=== PATIENT | female | born 1960 | race Caucasian/White ===

== ENCOUNTER 2024-08-16 15:39 | Inpatient (IN) | payer MEDICARE, MEDICAID ==
[~2024-08-16] VITALS: Ht 165.1 cm; Wt 59.1 kg
[2024-08-16] VITALS (9 sets, daily range): BP systolic 117–146; BP diastolic 66–82; PULSE 83–90; RESP 13–21; TEMP 96.7; O2SAT 96–100
[2024-08-16 16:26] LABS: BASOPHILS % (AUTO) 0.2 % (0-1); EOSINOPHILS % (AUTO) 0.2 % (0-6); MEAN PLATELET VOLUME 6.6 FL (7.4-10.4)
[2024-08-16 16:27] LABS: HEMATOCRIT 32.5 % (35.0-45.0); HEMOGLOBIN 9.5 g/dl (12.0-16.0); LYMPHOCYTES # (AUTO) 1.3 X10'3 (1.1-4.8); LYMPHOCYTES % (AUTO) 12.3 % (21-51); MEAN CORPUSCULAR HEMOGLOBIN 18.8 PG (27.0-31.0); MEAN CORPUSCULAR HGB CONC 29.1 g/dL (33.0-36.5); MEAN CORPUSCULAR VOLUME 64.3 FL (78-98); MONOCYTES # (AUTO) 0.8 X10'3 (0-0.9); MONOCYTES % (AUTO) 7.4 % (2-12); NEUTROPHILS # (AUTO) 8.4 X10'3 (1.8-7.7); NEUTROPHILS % (AUTO) 79.9 % (42-75); PLATELET COUNT 765 X10'3 (140-440); RED BLOOD COUNT 5.05 X10'6 (4.20-5.60); RED CELL DISTRIBUTION WIDTH 20.1 % (11.5-14.5); WHITE BLOOD COUNT 10.6 X10'3 (4.5-11.0)
[2024-08-16 16:40] LABS: ALANINE AMINOTRANSFERASE 17 U/L (12-78); ALBUMIN 2.5 G/DL (3.4-5.0); ALBUMIN/GLOBULIN RATIO 0.5 (1.1-1.5); ALKALINE PHOSPHATASE 80 IU/L (46-116); ANION GAP 9 (8-16); ASPARTATE AMINO TRANSFERASE 16 U/L (10-37); BILIRUBIN,TOTAL 0.9 MG/DL (0.1-1.0); BLOOD UREA NITROGEN 36 MG/DL (7-18); BUN/CREATININE RATIO 21.4 (10.0-20.0); CALCIUM 9.1 MG/DL (8.5-10.1); CHLORIDE 102 MMOL/L (99-107); CREATININE 1.68 MG/DL (0.40-0.90); GLUCOSE 105 MG/DL (70-104); POTASSIUM 3.5 MMOL/L (3.5-5.1); SODIUM 139 MMOL/L (135-145); TOTAL CARBON DIOXIDE 28.2 MMOL/L (24-32); TOTAL PROTEIN 7.1 G/DL (6.4-8.2); eGFR 31 ML/MIN
[2024-08-16 16:47] LABS: PRO BRAIN NATRIURETIC PEPTIDE 468 PG/ML (0-125)
[2024-08-16] MEDS: fentaNYL/PF 50MCG/1 ML 2ML syringe IV ONE ×2 (16:53→18:30)
[2024-08-16] MEDS: normal saline 1000ML IV soln IVB ONE (16:54)
[2024-08-16 17:07] LABS: ANISOCYTOSIS 3+; HYPOCHROMASIA 2+; MICROCYTOSIS 2+; PLATELET ESTIMATE INCREASED; ROULEAUX 1+; TOTAL CELLS COUNTED 100
[2024-08-16 17:08] LABS: POLYCHROMASIA 1+
[2024-08-16 17:10] LABS: ELLIPTOCYTES FEW; TOXIC VACUOLATION FEW
[2024-08-16] MEDS ORDERED: potassium Cl 40MEQ/1/2NS 520ml 520 ML IV PRN (17:30)
[2024-08-16] MEDS ORDERED: magnesium Cl slow-release 64mg tablet PO PRN (17:30)
[2024-08-16] MEDS ORDERED: acetaminophen 325mg tablet PO PRN ×2 (17:30)
[2024-08-16] MEDS ORDERED: magnesium sulf-water 2g/50mL 50 ML IV PRN (17:30)
[2024-08-16] MEDS ORDERED: potassium Cl 20 mEq SR tablet PO PRN ×2 (17:30)
[2024-08-16] MEDS ORDERED: ondansetron/PF 4mg/2ml inj IV PRN ×2 (17:30→21:00)
[2024-08-16] MEDS ORDERED: morphine 2 MG/ML inj. syringe IV PRN ×3 (17:30→23:10)
[2024-08-16] MEDS ORDERED: magnesium sulf-water 4G/100mL 100 ML IV PRN (17:30)
[2024-08-16 17:41] LABS: BILIRUBIN,URINE SMALL (Neg); CLARITY,URINE TURBID (Clear); COLOR,URINE YELLOW (Yellow); GLUCOSE, URINE NEGATIVE (Neg); KETONES,URINE TRACE mg/dl (Neg); LEUKOCYTE ESTERASE ,URINE MODERATE (Neg); NITRITES, URINE NEGATIVE (Neg); OCCULT BLOOD,URINE SMALL (Neg); PROTEIN,URINE 100 mg/dl (Neg); UROBILINOGEN,URINE 0.2 E.U/dL (0.2-1.0)
[2024-08-16] MEDS: piperacillin/tazo 3.375gm/50ml 50 ML IV ONE (17:42)
[2024-08-16] MEDS: normal saline 1000ml 1,000 ML IV SCH (17:42)
[2024-08-16] MEDS: morphine 2 MG/ML inj. syringe IV PRN (17:45)
[2024-08-16 17:47] LABS: UA COLLECTION TYPE STRAIGHT CATH
[2024-08-16 17:48] LABS: BACTERIA,URINE 4+ /HPF (Neg); MUCUS STRANDS FEW /LPF (Neg); SQUAMOUS EPITHELIAL CELL,UR MODERATE /LPF (FEW); WBC,URINE TNTC /HPF (0-4)
[2024-08-16 17:49] LABS: WBC CLUMPS,URINE MANY /HPF (NEGATIVE)
[2024-08-16 18:53] LABS: URINE AMPHETAMINE SCREEN POSITIVE (Neg); URINE BARBITUATE SCREEN NEGATIVE (Neg); URINE BENZODIAZEPINES SCREEN NEGATIVE (Neg); URINE CANNABINOID SCREEN NEGATIVE (Neg); URINE COCAINE SCREEN NEGATIVE (Neg); URINE METHADONE SCREEN NEGATIVE (Neg); URINE OPIATE SCREEN NEGATIVE (Neg); URINE PHENCYCLIDINE SCREEN NEGATIVE (Neg)
[2024-08-16] MEDS: normal saline 1000ml 1,000 ML IV ONE (19:10)
[2024-08-16] MEDS ORDERED: midazolam 1 mg/ML 2ml injection ONE (19:38)
[2024-08-16] MEDS ORDERED: fentaNYL /PF 50mcg/ml 5ml ampule ONE (19:39)
[2024-08-16] MEDS ORDERED: rocuronium 10mg/ml inj IV ONE (19:39)
[2024-08-16] MEDS ORDERED: propofol inj 20 ML IV ONE (19:39)
[2024-08-16] MEDS: BUPIVACAINE liposomal/PF 13.3 MG/ML vial IM ONE (19:46)
[2024-08-16] MEDS: BUPIVAcaine/PF 2.5mg/ml (0.25%) 10ml vial ONE (19:46)
[2024-08-16] MEDS: ciprofloxacin lact 400MG/200ML 200 ML IV SCH (19:48)
[2024-08-16] MEDS ORDERED: sevoflurane 250ml liquid IH ONE (20:07)
[2024-08-16] MEDS ORDERED: ceFOXitin 1000 MG inj ONE (20:08)
[2024-08-16] MEDS ORDERED: albumin (Human) 5% 250ml 250 ML IV ONE (20:52)
[2024-08-16] MEDS: ringers solution, lacted 1,000 ML IV SCH (21:00)
[2024-08-16] MEDS ORDERED: morphine 4 MG/ML inj SYRINge IV PRN (21:00)
[2024-08-16] MEDS ORDERED: meperidine/PF 25mg/ml syringe IV PRN ×3 (21:00)
[2024-08-16] MEDS ORDERED: proCHLORperazine 10 MG/2 ml inj IV PRN (21:00)
[2024-08-16] MEDS ORDERED: sugammadex 200mg/2ml injection IV ONE (21:24)
[2024-08-16] MEDS: pantoprazole 40MG/NS 100ML BAG 100 ML IV SCH (21:59)
[2024-08-16] MEDS: metroNIDAZOLE-Flagyl 500mg/NS 100 ML IV SCH (23:39)
[2024-08-16] MEDS: heparin, porcine 5000 units/ml vial SQ SCH (23:40)
[2024-08-17] VITALS (14 sets, daily range): BP systolic 98–121; BP diastolic 57–75; PULSE 71–103; RESP 13–19; TEMP 96.6–99.3; O2SAT 91–99
[2024-08-17] MEDS: pantoprazole 40MG/NS 100ML BAG 100 ML IV SCH (03:02)
[2024-08-17 07:14] LABS: BASOPHILS % (AUTO) 0.1 % (0-1); EOSINOPHILS % (AUTO) 0 % (0-6); HEMATOCRIT 23.5 % (35.0-45.0); LYMPHOCYTES # (AUTO) 0.7 X10'3 (1.1-4.8); LYMPHOCYTES % (AUTO) 5.9 % (21-51); MEAN CORPUSCULAR HEMOGLOBIN 18.4 PG (27.0-31.0); MEAN CORPUSCULAR HGB CONC 27.8 g/dL (33.0-36.5); MEAN CORPUSCULAR VOLUME 66.1 FL (78-98); MEAN PLATELET VOLUME 6.7 FL (7.4-10.4); MONOCYTES # (AUTO) 0.3 X10'3 (0-0.9); MONOCYTES % (AUTO) 3.1 % (2-12); NEUTROPHILS # (AUTO) 10.2 X10'3 (1.8-7.7); NEUTROPHILS % (AUTO) 90.9 % (42-75); PLATELET COUNT 436 X10'3 (140-440); RED BLOOD COUNT 3.56 X10'6 (4.20-5.60); RED CELL DISTRIBUTION WIDTH 20.4 % (11.5-14.5); WHITE BLOOD COUNT 11.2 X10'3 (4.5-11.0)
[2024-08-17 07:52] LABS: HEMOGLOBIN 6.5 g/dl (12.0-16.0)
[2024-08-17 07:57] LABS: % IRON SATURATION 2 % (11-46); IRON 5 UG/DL (49-151); TOTAL IRON BINDING CAPACITY 213 UG/DL (259-388)
[2024-08-17] MEDS ORDERED: pantoprazole 40mg Tablet.DR PO SCH (08:00)
[2024-08-17 08:12] LABS: ALANINE AMINOTRANSFERASE 9 U/L (12-78); ALBUMIN 1.8 G/DL (3.4-5.0); ALBUMIN/GLOBULIN RATIO 0.5 (1.1-1.5); ALKALINE PHOSPHATASE 43 IU/L (46-116); ANION GAP 10 (8-16); ASPARTATE AMINO TRANSFERASE 17 U/L (10-37); BILIRUBIN,TOTAL 0.5 MG/DL (0.1-1.0); BLOOD UREA NITROGEN 31 MG/DL (7-18); BUN/CREATININE RATIO 20.9 (10.0-20.0); CHLORIDE 114 MMOL/L (99-107); CREATININE 1.48 MG/DL (0.40-0.90); FERRITIN 29 NG/ML (8-252); FREE T4 (FREE THYROXINE) 1.39 NG/DL (0.73-1.40); GLUCOSE 114 MG/DL (70-104); POTASSIUM 4.1 MMOL/L (3.5-5.1); SODIUM 143 MMOL/L (135-145); THYROID STIMULATING HORMONE 4.25 ulU/ml (0.34-4.50); TOTAL PROTEIN 5.3 G/DL (6.4-8.2); eCRCL 34 ML/MIN; eGFR 35 ML/MIN
[2024-08-17 08:24] LABS: CALCIUM 7.3 MG/DL (8.5-10.1)
[2024-08-17 08:46] LABS: ANISOCYTOSIS 3+; MICROCYTOSIS 2+; PLATELET ESTIMATE NORMAL; TOTAL CELLS COUNTED 100
[2024-08-17 08:47] LABS: ELLIPTOCYTES FEW; HYPOCHROMASIA 2+
[2024-08-17] MEDS ORDERED: BACL10TA PO (10:34)
[2024-08-17] MEDS ORDERED: NAPR-996 PO (10:34)
[2024-08-17] MEDS ORDERED: DICL100G59 TOP (10:34)
[2024-08-17] MEDS ORDERED: PANT40TA54 PO (10:34)
[2024-08-17] MEDS ORDERED: LEVO50TA8 PO (10:34)
[2024-08-17] MEDS ORDERED: FERR-39 PO (10:34)
[2024-08-17 15:44] LABS: HEMOGLOBIN 7.3 g/dl (12.0-16.0); MEAN CORPUSCULAR HEMOGLOBIN 21.3 PG (27.0-31.0); MEAN CORPUSCULAR HGB CONC 30.4 g/dL (33.0-36.5); MEAN CORPUSCULAR VOLUME 70.2 FL (78-98); MEAN PLATELET VOLUME 6.5 FL (7.4-10.4); PLATELET COUNT 416 X10'3 (140-440); RED BLOOD COUNT 3.42 X10'6 (4.20-5.60); WHITE BLOOD COUNT 10.9 X10'3 (4.5-11.0)
[2024-08-17] MEDS: iron sucrose complex injection 200 MG in normal saline 100ml IV soln 100 ML IV SCH (18:55)
[2024-08-18 06:00] VITALS: BP 110/57; PULSE 59; RESP 16; TEMP 97.6; O2SAT 95
[2024-08-18 06:10] LABS: BASOPHILS % (AUTO) 0.1 % (0-1); EOSINOPHILS % (AUTO) 0 % (0-6); LYMPHOCYTES # (AUTO) 0.9 X10'3 (1.1-4.8); LYMPHOCYTES % (AUTO) 9.4 % (21-51); MEAN CORPUSCULAR HEMOGLOBIN 20.9 PG (27.0-31.0); MEAN CORPUSCULAR HGB CONC 29.7 g/dL (33.0-36.5); MEAN CORPUSCULAR VOLUME 70.1 FL (78-98); MEAN PLATELET VOLUME 6.6 FL (7.4-10.4); MONOCYTES # (AUTO) 0.5 X10'3 (0-0.9); MONOCYTES % (AUTO) 4.9 % (2-12); NEUTROPHILS % (AUTO) 85.6 % (42-75); PLATELET COUNT 357 X10'3 (140-440); RED BLOOD COUNT 3.28 X10'6 (4.20-5.60); RED CELL DISTRIBUTION WIDTH 24.7 % (11.5-14.5); WHITE BLOOD COUNT 9.3 X10'3 (4.5-11.0)
[2024-08-18 06:20] LABS: HEMOGLOBIN 6.8 g/dl (12.0-16.0)
[2024-08-18 06:26] LABS: ALANINE AMINOTRANSFERASE 17 U/L (12-78); ALBUMIN 1.6 G/DL (3.4-5.0); ALBUMIN/GLOBULIN RATIO 0.4 (1.1-1.5); ALKALINE PHOSPHATASE 53 IU/L (46-116); ANION GAP 8 (8-16); ASPARTATE AMINO TRANSFERASE 21 U/L (10-37); BILIRUBIN,TOTAL 0.4 MG/DL (0.1-1.0); BLOOD UREA NITROGEN 23 MG/DL (7-18); BUN/CREATININE RATIO 18.7 (10.0-20.0); CALCIUM 7.5 MG/DL (8.5-10.1); CHLORIDE 116 MMOL/L (99-107); CREATININE 1.23 MG/DL (0.40-0.90); GLUCOSE 85 MG/DL (70-104); POTASSIUM 3.8 MMOL/L (3.5-5.1); SODIUM 144 MMOL/L (135-145); TOTAL CARBON DIOXIDE 20.2 MMOL/L (24-32); TOTAL PROTEIN 5.4 G/DL (6.4-8.2); eCRCL 41 ML/MIN; eGFR 44 ML/MIN
[2024-08-18] MEDS: levoTHYROXINE 25mcg tablet PO SCH (08:15)
[2024-08-18 10:00] VITALS: BP 126/66; PULSE 59; RESP 16; TEMP 97.9; O2SAT 95
[2024-08-18] MEDS: HYDROcodone/acetaminophen 10/325mg tab PO PRN (12:57)
[2024-08-18 18:00] VITALS: BP 105/70; PULSE 52; RESP 16; TEMP 97.6; O2SAT 93
[2024-08-18 19:02] VITALS: BP 111/62; PULSE 80; RESP 14; TEMP 97.5
[2024-08-18 19:57] VITALS: BP 110/67; PULSE 50; RESP 14; TEMP 97.5
[2024-08-18 22:00] VITALS: BP 125/74; PULSE 58; RESP 16; TEMP 97.1; O2SAT 97
[2024-08-18 22:16] LABS: HEMATOCRIT 27.8 % (35.0-45.0); HEMOGLOBIN 8.5 g/dl (12.0-16.0); MEAN CORPUSCULAR HEMOGLOBIN 22.3 PG (27.0-31.0); MEAN CORPUSCULAR HGB CONC 30.7 g/dL (33.0-36.5); MEAN CORPUSCULAR VOLUME 72.7 FL (78-98); MEAN PLATELET VOLUME 6.6 FL (7.4-10.4); PLATELET COUNT 346 X10'3 (140-440); RED BLOOD COUNT 3.83 X10'6 (4.20-5.60); RED CELL DISTRIBUTION WIDTH 24.8 % (11.5-14.5); WHITE BLOOD COUNT 8.5 X10'3 (4.5-11.0)
[2024-08-19 05:54] LABS: BASOPHILS % (AUTO) 0.4 % (0-1); EOSINOPHILS % (AUTO) 0.5 % (0-6); HEMATOCRIT 26.6 % (35.0-45.0); HEMOGLOBIN 8.2 g/dl (12.0-16.0); LYMPHOCYTES # (AUTO) 1.2 X10'3 (1.1-4.8); LYMPHOCYTES % (AUTO) 13.4 % (21-51); MEAN CORPUSCULAR HEMOGLOBIN 22.3 PG (27.0-31.0); MEAN CORPUSCULAR HGB CONC 30.8 g/dL (33.0-36.5); MEAN CORPUSCULAR VOLUME 72.5 FL (78-98); MEAN PLATELET VOLUME 7.4 FL (7.4-10.4); MONOCYTES # (AUTO) 0.4 X10'3 (0-0.9); MONOCYTES % (AUTO) 4.1 % (2-12); NEUTROPHILS # (AUTO) 7.1 X10'3 (1.8-7.7); NEUTROPHILS % (AUTO) 81.6 % (42-75); PLATELET COUNT 375 X10'3 (140-440); RED BLOOD COUNT 3.66 X10'6 (4.20-5.60); RED CELL DISTRIBUTION WIDTH 24.8 % (11.5-14.5); WHITE BLOOD COUNT 8.6 X10'3 (4.5-11.0)
[2024-08-19 06:00] VITALS: BP 126/63; PULSE 79; RESP 16; TEMP 98.7; O2SAT 96
[2024-08-19 06:28] LABS: ALANINE AMINOTRANSFERASE 11 U/L (12-78); ALBUMIN 1.6 G/DL (3.4-5.0); ALBUMIN/GLOBULIN RATIO 0.4 (1.1-1.5); ALKALINE PHOSPHATASE 53 IU/L (46-116); ANION GAP 12 (8-16); ASPARTATE AMINO TRANSFERASE 20 U/L (10-37); BILIRUBIN,TOTAL 0.5 MG/DL (0.1-1.0); BLOOD UREA NITROGEN 20 MG/DL (7-18); BUN/CREATININE RATIO 18.5 (10.0-20.0); CHLORIDE 115 MMOL/L (99-107); CREATININE 1.08 MG/DL (0.40-0.90); GLUCOSE 78 MG/DL (70-104); POTASSIUM 3.6 MMOL/L (3.5-5.1); SODIUM 143 MMOL/L (135-145); TOTAL CARBON DIOXIDE 15.7 MMOL/L (24-32); TOTAL PROTEIN 5.5 G/DL (6.4-8.2); eCRCL 47 ML/MIN; eGFR 51 ML/MIN
[2024-08-19 10:00] VITALS: BP 136/79; PULSE 67; RESP 16; TEMP 97.8; O2SAT 95
[2024-08-19 14:28] VITALS: O2SAT 96
[2024-08-19] MEDS: HYDROcodone/acetaminophen 5mg/325mg tablet PO PRN (16:52)
[2024-08-19 18:00] VITALS: BP 130/57; PULSE 51; RESP 16; TEMP 97.5; O2SAT 96
[2024-08-19 22:00] VITALS: BP 113/61; PULSE 65; RESP 14; TEMP 97.8; O2SAT 95
[2024-08-20 06:00] VITALS: BP 139/73; PULSE 66; RESP 15; TEMP 96.5; O2SAT 99
[2024-08-20 06:06] LABS: BASOPHILS # (AUTO) 0.1 X10'3 (0-0.2); BASOPHILS % (AUTO) 0.9 % (0-1); EOSINOPHILS # (AUTO) 0.3 X10'3 (0-0.9); EOSINOPHILS % (AUTO) 4.4 % (0-6); HEMATOCRIT 27.2 % (35.0-45.0); HEMOGLOBIN 8.4 g/dl (12.0-16.0); LYMPHOCYTES # (AUTO) 1.6 X10'3 (1.1-4.8); LYMPHOCYTES % (AUTO) 26.1 % (21-51); MEAN CORPUSCULAR HEMOGLOBIN 22.2 PG (27.0-31.0); MEAN CORPUSCULAR HGB CONC 30.7 g/dL (33.0-36.5); MEAN CORPUSCULAR VOLUME 72.2 FL (78-98); MEAN PLATELET VOLUME 6.9 FL (7.4-10.4); MONOCYTES # (AUTO) 0.4 X10'3 (0-0.9); NEUTROPHILS # (AUTO) 3.8 X10'3 (1.8-7.7); NEUTROPHILS % (AUTO) 62.6 % (42-75); PLATELET COUNT 399 X10'3 (140-440); RED BLOOD COUNT 3.76 X10'6 (4.20-5.60); RED CELL DISTRIBUTION WIDTH 24.8 % (11.5-14.5)
[2024-08-20 06:40] LABS: ALBUMIN 1.7 G/DL (3.4-5.0); ALBUMIN/GLOBULIN RATIO 0.5 (1.1-1.5); ALKALINE PHOSPHATASE 46 IU/L (46-116); ANION GAP 7 (8-16); ASPARTATE AMINO TRANSFERASE 8 U/L (10-37); BILIRUBIN,TOTAL 0.3 MG/DL (0.1-1.0); BLOOD UREA NITROGEN 15 MG/DL (7-18); BUN/CREATININE RATIO 15.3 (10.0-20.0); CALCIUM 7.7 MG/DL (8.5-10.1); CHLORIDE 113 MMOL/L (99-107); CREATININE 0.98 MG/DL (0.40-0.90); GLUCOSE 91 MG/DL (70-104); SODIUM 139 MMOL/L (135-145); TOTAL CARBON DIOXIDE 19.5 MMOL/L (24-32); TOTAL PROTEIN 5.3 G/DL (6.4-8.2); eCRCL 52 ML/MIN; eGFR 57 ML/MIN
[2024-08-20 06:56] LABS: ALANINE AMINOTRANSFERASE 15 U/L (12-78)
[2024-08-20] MEDS ORDERED: potassium Cl 40MEQ/1/2NS 520ml 520 ML IV PRN (07:00)
[2024-08-20] MEDS ORDERED: potassium Cl 20 mEq SR tablet PO PRN (07:00)
[2024-08-20] MEDS: potassium Cl 20 mEq SR tablet PO PRN (07:47)
[2024-08-20] MEDS: K and/or MAG REPLACEMENT MC SCH (08:07)
[2024-08-20 08:22] LABS: MAGNESIUM 1.1 MG/DL (1.5-2.4)
[2024-08-20 10:00] VITALS: BP 135/77; PULSE 78; RESP 18; TEMP 98; O2SAT 98
[2024-08-20 18:00] VITALS: BP 150/95; PULSE 73; RESP 18; TEMP 97.7; O2SAT 97
[2024-08-20] MEDS ORDERED: magnesium sulf-water 4G/100mL 100 ML IV PRN (21:10)
[2024-08-20] MEDS ORDERED: magnesium sulf-water 2g/50mL 50 ML IV PRN (21:10)
[2024-08-20] MEDS: pantoprazole 40mg Tablet.DR PO SCH (21:56)
[2024-08-20] MEDS: magnesium Cl slow-release 64mg tablet PO PRN (21:58)
[2024-08-20 22:00] VITALS: BP 124/76; PULSE 67; RESP 16; TEMP 97.9; O2SAT 96
[2024-08-21 06:00] VITALS: BP 115/79; PULSE 91; RESP 16; TEMP 97.8; O2SAT 97
[2024-08-21 06:57] LABS: BASOPHILS # (AUTO) 0.1 X10'3 (0-0.2); BASOPHILS % (AUTO) 1.2 % (0-1); EOSINOPHILS # (AUTO) 0.3 X10'3 (0-0.9); EOSINOPHILS % (AUTO) 4.7 % (0-6); HEMATOCRIT 31.6 % (35.0-45.0); HEMOGLOBIN 9.8 g/dl (12.0-16.0); LYMPHOCYTES # (AUTO) 1.7 X10'3 (1.1-4.8); LYMPHOCYTES % (AUTO) 27.8 % (21-51); MEAN CORPUSCULAR HEMOGLOBIN 22.4 PG (27.0-31.0); MEAN CORPUSCULAR HGB CONC 31.1 g/dL (33.0-36.5); MEAN CORPUSCULAR VOLUME 72.2 FL (78-98); MEAN PLATELET VOLUME 7.2 FL (7.4-10.4); MONOCYTES # (AUTO) 0.5 X10'3 (0-0.9); MONOCYTES % (AUTO) 7.6 % (2-12); NEUTROPHILS # (AUTO) 3.5 X10'3 (1.8-7.7); NEUTROPHILS % (AUTO) 58.7 % (42-75); PLATELET COUNT 443 X10'3 (140-440); RED BLOOD COUNT 4.38 X10'6 (4.20-5.60); RED CELL DISTRIBUTION WIDTH 25.8 % (11.5-14.5)
[2024-08-21 07:29] LABS: ALANINE AMINOTRANSFERASE 11 U/L (12-78); ALBUMIN 1.6 G/DL (3.4-5.0); ALBUMIN/GLOBULIN RATIO 0.4 (1.1-1.5); ALKALINE PHOSPHATASE 56 IU/L (46-116); ANION GAP 7 (8-16); ASPARTATE AMINO TRANSFERASE 11 U/L (10-37); BILIRUBIN,TOTAL 0.3 MG/DL (0.1-1.0); BLOOD UREA NITROGEN 9 MG/DL (7-18); BUN/CREATININE RATIO 9.1 (10.0-20.0); CALCIUM 7.7 MG/DL (8.5-10.1); CHLORIDE 111 MMOL/L (99-107); CREATININE 0.99 MG/DL (0.40-0.90); GLUCOSE 114 MG/DL (70-104); MAGNESIUM 1.5 MG/DL (1.5-2.4); POTASSIUM 4.4 MMOL/L (3.5-5.1); SODIUM 136 MMOL/L (135-145); TOTAL CARBON DIOXIDE 18.5 MMOL/L (24-32); TOTAL PROTEIN 5.5 G/DL (6.4-8.2); eCRCL 51 ML/MIN; eGFR 56 ML/MIN
[2024-08-21 07:52] LABS: ANISOCYTOSIS 3+; HYPOCHROMASIA 1+; MICROCYTOSIS 1+; PLATELET ESTIMATE INCREASED; POLYCHROMASIA 1+
[2024-08-21 07:53] LABS: BURR CELLS 1+; ELLIPTOCYTES 1+; ROULEAUX 1+
[2024-08-21 08:00] VITALS: RESP 16; O2SAT 97
[2024-08-21] MEDS ORDERED: HYDR-3965 PO (19:14)
[2024-08-21] MEDS ORDERED: DOCU-148 PO (19:16)
[2024-08-21] MEDS ORDERED: PANT-47 PO (19:19)
== END 2024-08-21 15:05 | disposition home or self-care (01) | DRG 853 ==
LOC: ER 15:40 → ED HOLD 17:34 → ORTHO 4S 22:48
PROVIDERS: ADMIT Internal Medicine; ATTEND Internal Medicine
PROC: 0DQ60ZZ Repair Stomach, Open Approach (ICD-10-PCS; 2024-08-16)
PROC: 0WQF0ZZ Repair Abdominal Wall, Open Approach (ICD-10-PCS; principal; 2024-08-16 20:07)
PROC: 30233N1 Transfusion of Nonautologous Red Blood Cells into Peripheral Vein, Percutaneous Approach (ICD-10-PCS; 2024-08-17)
DX: A41.9 Sepsis, unspecified organism (principal); K25.1 Acute gastric ulcer with perforation; N17.0 Acute kidney failure with tubular necrosis; K65.0 Generalized (acute) peritonitis; K42.9 Umbilical hernia without obstruction or gangrene; N20.0 Calculus of kidney; M06.9 Rheumatoid arthritis, unspecified; E03.9 Hypothyroidism, unspecified; D75.839 Thrombocytosis, unspecified; K80.20 Calculus of gallbladder without cholecystitis without obstruction; D50.9 Iron deficiency anemia, unspecified
CPT/HCPCS: 36415; 36430; 71045; 74176; 76700; 80053; 80305; 81001; 82330; 82570; 82728; 83540; 83550; 83605; 83735; 83880; 84132; 84145; 84300; 84439; 84443; 84484; 85007; 85008; 85025; 85027; 86885; 86900; 86901; 86920; 87040; 87077; 87081; 87088; 87186; 93005; 97110; 97161; 97530; 97535; 99285; A4615; A4618; A4649; A6212; A6213; A6258; A6266; A6402; A6407; A6449; A7000; C1758; C9290; G0378; J0694; J0744; J1644; J1756; J2250; J2270; J2470; J2543; J2704; J3010; J3490; J7030; J7040; J7120; P9016; P9045

== ENCOUNTER 2025-08-28 13:39 | Emergency (ER) | payer MEDICARE, MEDICAID ==
[~2025-08-28] VITALS: Ht 165.1 cm; Wt 68.2 kg
[~2025-08-28 13:39] MED LIST: BACL10TA PO; DICL100G59 TOP; DOCU-148 PO; FERR-39 PO; LEVO50TA8 PO; PANT-47 PO
[2025-08-28 13:46] VITALS: BP 144/81; PULSE 86; RESP 16; TEMP 97.8; O2SAT 99
--- NOTE | 2025-08-28 14:27 | RADIOLOGY REPORT ---
PROCEDURE: Right elbow radiographs. INDICATION: R/O FX TECHNIQUE: 3 views of the right elbow were obtained. COMPARISON: None FINDINGS: There is chronic deformity versus resorption of the distal humerus and radial head. The distal humeral diaphysis articulates with the ulna. No evidence for acute fracture. IMPRESSION: 1. 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 2. The distal humeral diaphysis articulates with the ulna. 3. No evidence for acute fracture.
--- NOTE | 2025-08-28 14:38 | RADIOLOGY REPORT ---
CLINICAL INDICATION: R/O FX TECHNIQUE: 3 radiographic views of the left wrist were obtained. 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 No obvious acute displaced fracture is noted. Diffuse demineralization. Significant soft tissue edema of the dorsum of the hand with soft tissue edema of the distal forearm.
[2025-08-28] MEDS ORDERED: CELE-80 PO (15:33)
[2025-08-28] MEDS ORDERED: CEPH-585 PO (15:33)
[2025-08-28] MEDS ORDERED: DICL100G59 TOP (15:33)
--- NOTE | 2025-08-28 15:33 | Physician Documentation ---
History of Present Illness ~ Chief Complaint: Arm Pain Stated Complaint: MULTIPLE MED COMPLAINTS Time Seen by MD: 15:10 Primary Medical Doctor: [facility] Source: patient, family Mode of Arrival: POV, Wheelchair Exam Limitations: no limitations HPI 65-year-old female with history of osteoporosis and rheumatoid arthritis fell and injured her right arm and elbow when she was getting out of bed approximately 2 months ago. Patient has noticed some pain and swelling to the elbow into the hand over the past few days. No fevers chest pain or shortness of breath Tetanus within 5 years: No Medication Reconciliation Allergies: Coded Allergies: No Known Allergies (Unverified , 08/28/25) Scheduled Baclofen (Baclofen), 1 TAB PO BID, (Reported) Celecoxib (Celebrex), 1 CAP PO DAILY Cephalexin*Monohydrate* (Keflex*), 1 CAP PO Q8H Diclofenac Sodium (Diclofenac Sodium), 1 APPLIC TOP QID, (Reported) Diclofenac Sodium (Diclofenac Sodium), 1 APPLIC TOP Q6H Docusate Sodium (Colace), 1 CAP PO Q12H Ferrous Sulfate (Ferrous Sulfate), 1 TAB PO DAILY, (Reported) Levothyroxine Sodium (Levothyroxine Sodium), 1 TAB PO DAILY, (Reported) Pantoprazole Sodium (PROTONIX tablet), 40 MG PO BID Past Medical History Past Medical History: *HEMATOLOGY*, Hernia Past Surgical History: noncontributory Patient History: Patient reports no known family medical history. Alcohol Use: None Drug Use: none Lives In: Home Occupation: retired Review of Systems All Other Systems at this time: Reviewed and Negative Integumentary: Reports: see HPI Physical Exam Vital Signs: RN Vital Signs have been reviewed: Yes, Temperature: 97.8, Source: Temporal, Heart Rate: 86, Respiratory Rate: 16, BP: 144/81, Pulse Oximetry: 99, Weight: 68.180 Oxygen Flow Rate: 0 Physical Exam General: Alert, no apparent distress. HEENT: moist mucous membranes. Neck: Full range of motion. Respiratory: No respiratory distress speaking in full sentences Chest: No accessory muscle use. Cardiovascular: Appears well perfused Extremity: Right elbow and hand with moderate swelling swelling at to the anterior portion of the elbow firm, with erythema and warmth sensation circulation intact distally. Swelling to the dorsal aspect of the right hand without erythema and warmth. Neurologic: Oriented x4. Psychiatric: Normal mood and affect. Skin: Normal color, warm and dry. No edema, no ecchymosis. Progress Results/Orders Results/Orders Orders - CAROL FOSTER DIRECTOR EMERGENCY DEPARTMENT Ortho Orders (08/28/25 ) Vital Signs 08/28/25 13:46 Temp 97.8 Pulse 86 Resp 16 B/P (MAP) 144/81 Pulse Ox 99 O2 Flow Rate 0 EKG/XRAY/CT/US/VASC/MRI Bone/Soft Tissue X-Ray (Ext.) #1: Additional Comment CLINICAL INDICATION: R/O FX TECHNIQUE: 3 radiographic views of the left wrist were obtained. 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 No obvious acute displaced fracture is noted. Diffuse demineralization. Significant soft tissue edema of the dorsum of the hand with soft tissue edema of the distal forearm. Bone/Soft Tissue X-Ray (Ext.) #2: Additional Comment PROCEDURE: Right elbow radiographs. INDICATION: R/O FX TECHNIQUE: 3 views of the right elbow were obtained. COMPARISON: None FINDINGS: There is chronic deformity versus resorption of the distal humerus and radial head. The distal humeral diaphysis articulates with the ulna. No evidence for acute fracture. IMPRESSION: 1. 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 2. The distal humeral diaphysis articulates with the ulna. 3. No evidence for acute fracture. Medical Decision Making Findings Swelling, from cellulitis, wound, infection, fracture, immobility are differenti als. Patient's x-rays show significant bone demineralization and joint issues as well as a chronic fracture. At this time there is erythema and warmth to the elbow with gout versus cellulitis being a differential. Antibiotics and an arm sling for patient to follow up primary care Elbow Diff Dx:Considerations: Include: Abrasion, Arthritis, Contustion, Fractu re-humerus, Fracture-radial head, Gout, Olecranon bursitis, Osteomyelitis, Septic, Sprain Departure Time of Disposition: 15:31 Disposition: 01 HOME / SELF CARE / HOMELESS Impression: Primary Impression: Cellulitis Qualified Codes: L03.113 - Cellulitis of right upper limb Condition: Stable Discharge Instructions: Cellulitis, Adult, [id number] Additional Instructions: Use sling to help reduce swelling and follow up with primary care due to the rheumatoid arthritis and old fracture nothing acute but at this time cellulitis needs to be treated with antibiotics. Referrals: NO PRIMARY CARE PROVIDER (PCP) Prescriptions Diclofenac Sodium (Diclofenac Sodium) 1 % Gel..gram. 1 APPLIC TOP Q6H for 21 Days, #100 GM 0 Refills Prov: CAROL FOSTER NP 08/28/25 Celecoxib (Celebrex) 200 Mg Capsule 1 CAP PO DAILY for pain for 30 Days, #30 CAP 0 Refills Prov: CAROL FOSTER NP 08/28/25 Cephalexin*Monohydrate* (Keflex*) 500 Mg Capsule 1 CAP PO Q8H for 10 Days, #30 CAP Prov: CAROL FOSTER NP 08/28/25 Education Educated: Patient, Family Educated regarding: diagnosis, treatment, need for follow up Signature Scribe Signature: No scribe Attestation: The note accurately reflects work and decisions made by me.Carol Foster - ABIGAIL 08/28/25 15:33 CAROL FOSTER NP Aug 28, 2025 15:33
== END 2025-08-28 15:47 | disposition home or self-care (01) ==
LOC: ER 13:40
DX: L03.113 Cellulitis of right upper limb (principal); Z79.899 Other long term (current) drug therapy
CPT/HCPCS: 29125; 73080; 73110; 99284; A4565